=== PATIENT | male | born 1945 | race Caucasian/White ===

== ENCOUNTER 2019-07-28 11:29 | Outpatient (RCR) | payer MEDICARE, OTHER, SELFPAY ==
[2019-07-28 11:51] VITALS: BP 126/78; PULSE 85; RESP 16; O2SAT 95
--- NOTE | 2019-08-31 09:34 | PCCPR ---
Program is temporarily suspended due to COVID outbreak.
--- NOTE | 2019-09-07 14:07 | PCCPR ---
Called patient in regards to the temporary closure of our department continuing until at least October 05. Patient states he has a tendency to over do it and then cant do much for several days after. Encouraged him to just do 20-30 min of activity/yard work per day instead of trying to get it all done in one day. Also encouraged patient to get in some walking during his time off from here. Will mail out temporary home exercise information. Will continue to follow patient weekly.
--- NOTE | 2019-09-14 11:54 | PCCPR ---
Called Ward today for weekly check, spoke with and she stated that he was doing well and received the exercise guidelines in the mail.
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
--- NOTE | 2019-10-05 13:10 | PCCPR ---
Weekly update call-informed patient of continued closure through the month of October due to the extension of the [facility] in place order. No questions at this time.
--- NOTE | 2019-11-03 15:13 | PCCPR ---
Spoke with Ward today, he is to have an echocardiogram and see Dr. Mcbride next week. No questions or concerns at this time.
--- NOTE | 2020-02-07 11:12 | PCCPR ---
Spoke with Ward about possibly returning to CPR States he feels he is getting quite a bit of exercise at home. He also mentioned his frustration with taking his daily diuretic and needing to urinate frequently. He said he has also put on weight and his leg still swells off and on. He has an apt with Dr Mcbride about returning to Cardiac rehab on 02/19. Requested he give us an update after his apt.
--- NOTE | 2020-02-28 16:01 | PCCPR ---
Ward saw his signal person last week and Rn Clinical Coordinator left it up to his discretion as to return to cardiac rehab. At this time Ward would not like to return, Ward discharged from program.
== END 2019-07-28 23:59 | disposition home or self-care (01) ==
LOC: ANHCPREHAB 11:29
PROVIDERS: PCP Internal Medicine; Visit Provider Internal Medicine Cardiovascular Disease
DX: I50.89 Other heart failure (principal)
CPT/HCPCS: 93798

== ENCOUNTER 2022-04-22 15:10 | Outpatient (CLI) | payer MEDICARE, SELFPAY ==
--- NOTE | ~2022-04-22 | US_ITS ---
US retroperitoneal comp 04/22/2022 15:57 Procedure: Realtime transabdominal ultrasound of the kidneys and bladder. Indication: Urinary tract infection Comparison: No prior studies Findings: Renal echotexture is normal bilaterally without hydronephrosis, contour deforming mass or r enal calculus. The right kidney measures 10.8 cm and left kidney measures 11.4 cm. Bladder volume is 460 cc. There is a bladder diverticula. No bladder wall thickening. Impression: 1: Bladder diverticula. Otherwise, unremarkable renal ultrasound. Reviewed, dictated and finalized at location A. ATION ENGINEER Impression: 1: Bladder diverticula. Otherwise, unremarkable renal ultrasound.
== END 2022-04-22 15:11 | disposition home or self-care (01) ==
PROVIDERS: PCP Internal Medicine; Visit Provider Nurse Practitioner
DX: N39.0 Urinary tract infection, site not specified (principal); N32.3 Diverticulum of bladder
CPT/HCPCS: 76770

== ENCOUNTER → 2023-08-10 11:45 | Outpatient (CLI) | payer MEDICARE, SELFPAY ==
--- NOTE | ~2023-08-10 | CT_ITS ---
EXAMINATION: CT abdomen pelvis wo con DATE: 08/10/2023 12:11 INDICATION: Benign prostatic hyperplasia. TECHNIQUE: Computed tomography (CT) of the abdomen and pelvis was performed without intravenous contr ast. Automated exposure control and iterative reconstruction technique were employed. The dose-length product was 1090.12 mGy-cm. COMPARISON: None. FINDINGS: The visualized portions of the lung bases demonstrate minimal atelectasis. There are small pleural effusions. Cardiomegaly is noted. No pericardial effusion. There are coronary artery calcific ations. There are pacer wires in right ventricle and coronary sinus. There is a small sliding hiatal hernia. The liver, gallbladder, spleen, pancreas, and adrenal glands are normal. There is cortical th inning of the kidneys. There is a 10 mm cyst in left kidney. There is no urolithiasis. There is calci fied atherosclerosis of the aorta and many of the other arteries. The prostate is mildly enlarged. Th e bladder is distended with trabeculated wall and diverticula. There are no dilated loops of bowel. T he appendix is normal. There are no pathologically enlarged lymph nodes. There is no free intraperito abby fluid. There is moderate lumbar spondylosis. There are bridging endplate osteophytes at multiple levels in the spine, consistent with diffuse idiopathic skeletal hyperostosis (DISH). There is mild chronic anterior wedging of multiple vertebral bodies. IMPRESSION: 1. Mildly enlarged prostate. 2. Distended bladder with trabeculated wall and diverticula which may be seen with chronic outlet obs truction or neurogenic bladder. 3. Small sliding hiatal hernia. Reviewed, dictated and finalized at location E. FITTER IMPRESSION: 1. Mildly enlarged prostate. 2. Distended bladder with trabeculated wall and diverticula which may be seen w ith chronic outlet obstruction or neurogenic bladder. 3. Small sliding hiatal hernia.
== END ==
PROVIDERS: PCP Urology; Visit Provider Urology
DX: N40.1 Benign prostatic hyperplasia with lower urinary tract symptoms (principal); K44.9 Diaphragmatic hernia without obstruction or gangrene
CPT/HCPCS: 74176

== ENCOUNTER 2023-08-31 12:19 | Outpatient (RCR) | payer MEDICARE, SELFPAY ==
--- NOTE | 2023-08-31 13:42 | OPREHPOC ---
Outpatient Therapy Plan of Care This is a Multidisciplinary Plan of Care that may contain components documented by all disciplines (PT, OT, and ST.) PT Problem 1 PT Problem #1 Knowledge Deficit PT Goal 1 Goal *indep with HEP PT Goal 1 Goal * monitor leg pain during sessions PT Problem 3 PT Problem #3 Impaired Strength PT Goal 1 Goal increase R and L LE strength to improve transfer and gait skills: 1* supine exercises R and L LE x 20 reps 2* sit/stand from 18 seat with both UE use and not labored PT Problem 4 PT Problem #4 Impaired Functional Mobility PT Goal 1 Goal 1* supine/sit transfer indep, not labored 2* Tinetti balance/gait score of 20/28 3* 2 minute walking test distance of 250' with wheeled walker 4* pt report is NOT assisting him with dressing 5* pt transfer sit to stand without report of feeling like falling forward
--- NOTE | 2023-08-31 13:43 | PTOPEVAL1 ---
Assessment and note entered by Mary Mayers, PT Evaluation Information Assessment Status Evaluation Diagnosis neuropathy, decreased gait and balance skills Onset past few years Subjective Information have declined with mobility since CABG surgery 5 years ago; more in the past few years; have neuropathy in both legs, use wheeled walker, regular walker and cane; very limited walking, in home only; does home tasks; he does go to [employer] and helps with bingo 3x /wk; have not had any falls; does not do any LE exercises, does try little walking in the house. Activity: requires assist with donning under pad and putting on shoes; indep showering/bathing; assist with dressing, pt stands to put on pants and shoes, holding onto dresser as he uses other hand for pants; Education: dressing in sitting position, use of long handle shoe horn; use of wheeled walker for more balance; Reported Pain Level Pain Score 0: Self Report Additional Pain Score Comments pain in legs increase to 6/10 when over do it; sharp pain sometimes in either foot, when in bed; in the house, tends to walk without shoes or socks on; discussed on importance of shoe to protect feet; Assessment PT Clinical Summary Ward has the diagnosis of neuropathy with decreased balance and mobility. He is using the cane or wheeled walker, with assisting him with dressing and doing the majority of home tasks. Limited distance with walking and has not had any falls, but off balance and fearful of falling. He does not do any leg exercises and uses the lift chair to assist him to stand up. With the evaluation: he requires assist to transfer sit to stand from 18 seat height; Poor gait pattern with short step length and shuffling, flat foot pattern; 2 minute walking test distance with the wheeled walker is 120'; Tinetti balance/gait score of 9/28= high risk for falls; decreased LE strength R and L, with mat and sitting exercises, 6-11 reps; supine to sit from the mat requires min assist x1. Skilled PT services are indicated to increase LE strength, transfer, gait and balance skills, to improve his indep with mobility and self care, decrease the amount of assistance required from his and education for home exercises and gait pattern and safety. Plan of Care Interventions Neuro Re-education,Patient/Caregiver Education, Therapeutic Activities,Therapeutic Exercise,Self- Care/Home Management PT Services Indicated Yes Treatment Frequency and 2x/wk for total of 10 visits Duration These treatments will address the objective and functional deficits as defined above. The patient will be advanced safely and appropriately in order for the patient to progress towards his/her prior level of function. Additional exercises will be introduced and as well as a comprehensive home exercise program upon discharge, if needed, ?to ensure carryover of functional gains achieved in the clinic. This treatment plan has been reviewed and agreement upon by the patient.
--- NOTE | 2023-09-04 08:38 | PCPTNOTE ---
talked with pt's Jazmine on the phone. She canceled upcoming PT appointments due to pt having prostate surgery next week and HOLD PT until after surgery and cleared by dr to return to PT. Discussed with her to obtain an order from dr to resume PT.
--- NOTE | 2023-09-25 09:09 | PTOPDC ---
Assessment and note entered by Mary Mayers, PT Discharge Information Assessment Status Discharge - Pt Not Present Diagnosis neuropathy, decreased gait and balance skills Onset past few years Assessment PT Clinical Summary Ward had the PT evaluation on August 30. He called and canceled his therapy due to having prostate surgery and then going out of town. The goals were not assessed. Discharge PT services. Plan of Care PT Services Indicated No
== END 2023-09-25 09:42 | disposition home or self-care (01) ==
LOC: ANHPT 12:19
PROVIDERS: PCP Urology; Visit Provider Internal Medicine
DX: G62.9 Polyneuropathy, unspecified (principal)
CPT/HCPCS: 97110; 97162; 97530

== ENCOUNTER 2023-09-10 00:59 | Day surgery (SDC) | payer MEDICARE, SELFPAY ==
[2023-09-02 15:29] VITALS: BMI 47.6
--- NOTE | 2023-09-02 15:48 | PC.NURSE ---
Report to the Outpatient Waiting Room, entrance under the green pavilion located off [facility], at time __6:30AM on date ___09/10/23____. Planned Procedure Time: __8:30AM . Time changes happen often and if your time is changed the preop area will call you the afternoon before. - You and your visitor will be asked to self-screen and do not enter if you have any COVID symptoms. - A mask is optional within the hospital at this time. Patients may have clear liquids (water, carbonated beverages, clear teas, apple juice) until 3 hours prior to surgery with a maximum of 20 ounces. - No food from midnight until time of surgery. Take the following medications with a SIP of water the morning of surgery: ___CARVEDILOL, SOTALOL DO NOT STOP ANY OF YOUR OTHER PRESCRIPTION MEDICATIONS PRIOR TO SURGERY ?EXCEPT THE FOLLOWING Medications to discontinue per physician ___HOLD XERALTO 2 DAYS PRE-OP PER DR MEZA PER PATIENT- LAST DOSE 09/07/23. HOLD ASPIRIN PER DR MEZA- PATIENT'S IS CALLING OFFICE TO VERIFY. Please no make-up, nail czech, hairspray, perfume, deodorant, or body powder the day of surgery. No jewelry (including any body piercings) or valuables the day of surgery, leave them at home. Please take a shower or bath the night before, or the morning of, surgery with an antibacterial soap. Wear comfortable, loose fitting clothing. Children are encouraged to wear pajamas. - Jewelry must be removed prior to entering the operating room. Rings and piercings that are not removed may be cut off. - The hospital will not accept responsibility for valuables. - Please leave all valuables, including medications, at home the day of surgery. If you are going home after surgery, a licensed team otr truck driver must drive you home. - NO public transportation without another adult if you receive anesthesia. - We recommend that an adult stay with you for 24 hours following discharge. - We also recommend that you do not drive, make important decision, drink alcoholic beverages, or take any drugs that were not prescribed by your health care provider for at least 24 hours after your discharge time. For Pediatric surgeries, we recommend two adults accompany the child home. Follow any additional instructions given to you from your surgeon. If you or anyone in your household have experienced Covid symptoms in the past week, please notify your surgeon or the nurse liaison at the phone number below for possible testing. Telephone instructions given to ___PATIENT & WIFE and asked if any additional questions and then verbalized understanding. Patient advised to call surgeon office or pre surgery nurse liaison [phone] if any additional questions.
--- NOTE | 2023-09-03 07:20 | PM.IMHP ---
H&P: HPI History of Present Illness Date/Time: 09/03/23 07:20 Chief Complaint: Difficulty urinating Narrative: 78-year-old gentleman is a patient of our practice since September 2020. He has longstanding outlet obstructive voiding symptoms and is quite troubled by both irritable and obstructive symptoms. He carries residual volumes of approximately 500 cc. He has had minimal response to attempt with medical therapy both with 5 alpha reductase inhibitors and alpha blockers. Recent urodynamics are consistent with outlet obstruction and transrectal ultrasonography demonstrates a prostate volume of approximately 40-45 g. After discussion of therapeutic options including minimally invasive procedures for BPH and TURP, he has elected for the latter. He is aware the risk including, but not limited to, adverse cardiopulmonary events, persistent voiding symptoms, hematuria and retrograde ejaculation. Review of Systems Cardiovascular: Cardiovascular: Denies chest pain, Denies lightheadedness, Denies palpitations and Denies dyspnea Respiratory: Respiratory: Denies dyspnea Gastrointestinal: Gastrointestinal: Denies diarrhea, Denies nausea and Denies vomiting Genitourinary: Genitourinary: Denies hematuria and Denies dysuria Endocrine: Endocrine: Denies palpitations [facility] Past Medical History Medical History (Updated 09/03/23 @ 07:22 by Eduardo Holloway MD) Atrial fibrillation Cardiomyopathy Hypertension, essential Low Back Pain Neuropathy Obesity Rectal hemorrhage Systolic heart failure Venous stasis Family History Family History Father Acute myocardial infarction Mother Leukemia Sibling Lung cancer Social History Social History Smoking status: Never smoker 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) Alcohol intake: current Drinks per week: 7 Living arrangements: with family Additional living arrangements comments: Spiritual care concerns: No Meds Home Medications and Allergies Home Medications Medication Instructions Recorded Confirmed Type acetaminophen 325 mg capsule 650 mg PO Q6-8H PRN Pain 07/28/19 09/02/23 History (Tylenol) allopurinol 100 mg tablet 200 mg PO DAILY 07/28/19 09/02/23 History aspirin 81 mg tablet,delayed 81 mg PO DAILY 07/28/19 09/02/23 History release carvedilol 12.5 mg tablet 12.5 mg PO BID 07/28/19 09/02/23 History furosemide 40 mg tablet 20 mg PO QAM 07/28/19 09/02/23 History rivaroxaban 20 mg tablet (Xarelto) 20 mg PO DAILY 07/28/19 09/02/23 History sacubitril 49 mg-valsartan 51 mg 1 tablet PO BID 07/28/19 09/02/23 History tablet (Entresto) atorvastatin 40 mg tablet 40 mg PO DAILY 09/02/23 09/02/23 History sotalol 80 mg tablet 40 mg PO BID 09/02/23 09/02/23 History spironolactone 25 mg tablet 25 mg PO QAM 09/02/23 09/02/23 History Allergies Allergy/AdvReac Type Severity Reaction Status Date / Time No Known Allergies Allergy Unknown Other Verified 09/02/23 15:22 Exam Const: General: no acute distress Resp: Effort & Inspection: normal respiratory effort GI: Inspection: non-distended GI Palp: No abdominal tenderness and No Guarding due to palpation present (GI) Auscultation: normal bowel sounds Assessment and Plan Assessment and plan (1) BPH loc w urin obs/LUTS: Code(s): N40.1 - Benign prostatic hyperplasia with lower urinary tract symptoms Status: Acute Assessment and Plan: TURP
[2023-09-10] VITALS (13 sets, daily range): BP systolic 122–162; BP diastolic 67–83; PULSE 70–80; RESP 12–20; TEMP 36.1–36.8; O2SAT 96–100
--- NOTE | 2023-09-10 06:27 | WPDHPUPDATE1 ---
History and Physical Update Update Date/Time: 09/10/23 06:27 History and Physical has been reviewed, including an updated exam of the patient. There are NO changes in the patient's condition. Risks, benefits, and alternatives have been discussed and questions answered. Patient agrees to proceed with procedure.
[2023-09-10] MEDS: LACTATED RINGERS 1,000 ML 30 ML IV CONT (07:00)
--- NOTE | 2023-09-10 08:09 | WPDANESEPPF ---
Anes - Initial Pre Proc Eval Procedure: Operation Date: 09/10/23 08:30 Proposed Procedures p Trans Urethral Resection Prostate - Eduardo Holloway MD Date/Time: 09/10/23 08:09 Surgeon: Eduardo Holloway MD Pre Op Diagnosis: BPH Patient Data Age: 78 Gender: M Height: 1.8 m Weight: 157 kg Last Vital Signs Temp 98.0 F 09/10/23 07:48 Pulse 80 09/10/23 07:48 Resp 16 09/10/23 07:48 BP 162/67 H 09/10/23 07:48 Pulse Ox 99 09/10/23 07:48 O2 Del Method Room Air 09/10/23 07:48 Allergies Allergy/AdvReac Type Severity Reaction Status Date / Time No Known Allergies Allergy Unknown Other Verified 09/10/23 07:45 Home Medications Medication Instructions Recorded Confirmed Type acetaminophen 325 mg capsule 650 mg PO Q6-8H PRN Pain 07/28/19 09/02/23 History (Tylenol) allopurinol 100 mg tablet 200 mg PO DAILY 07/28/19 09/02/23 History aspirin 81 mg tablet,delayed 81 mg PO DAILY 07/28/19 09/10/23 History release carvedilol 12.5 mg tablet 12.5 mg PO BID 07/28/19 09/10/23 History furosemide 40 mg tablet 20 mg PO QAM 07/28/19 09/02/23 History rivaroxaban 20 mg tablet (Xarelto) 20 mg PO DAILY 07/28/19 09/10/23 History sacubitril 49 mg-valsartan 51 mg 1 tablet PO BID 07/28/19 09/02/23 History tablet (Entresto) atorvastatin 40 mg tablet 40 mg PO DAILY 09/02/23 09/02/23 History sotalol 80 mg tablet 40 mg PO BID 09/02/23 09/10/23 History spironolactone 25 mg tablet 25 mg PO QAM 09/02/23 09/02/23 History Patient hx anesthesia problems: none Family hx anesthesia problems: none Results Review: All pre-operative results and documents have been reviewed as part of the pre-operative evaluation. 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 ) Neurological: alert and oriented Last oral intake: >/= 8 hours ASA classification: IV Emergent: no Anesthetic plan: proceed Anesthesia type and monitoring: general and standard monitoring Other findings: Full cardiac workup August 2023 w reported nml LVEF. ANJANA on CPAP 5-18. Results Review: All pre-operative results and documents have been reviewed as part of the pre-operative evaluation. Informed Consent: The patient's anesthetic plan and its attendant risks and benefits were discussed with the patient/family/POA. Questions were solicited and answers provided to the satisfaction of the patient/family/POA.
[2023-09-10] MEDS: ceFAZolin 3 GM/D5W 100 ML 100 ML IVPB (08:27)
[2023-09-10] MEDS: fentaNYL CITRATE INJ (*CRX) 100 MCG/2 ML VIAL 25 MCG IV PUSH ×6 (09:37→10:03)
--- NOTE | 2023-09-10 09:37 | P.OP_ITS ---
Procedure Note - Detailed Date of Procedure 09/10/23 Pre-op Diagnosis BPH Post-op Diagnosis Same Procedure Performed TURP Surgeon Eduardo Holloway MD Anesthesia General Description of Procedure The patient was brought to the operative suite where he is prepped and draped in routine sterile fashion while in the dorsal lithotomy position after the uneventful induction of a general LMA anesthetic. A 27 Lao resectoscope sheath was placed into his bladder. He had no urethral strictures. The patient had trilobar hyperplasia with a moderate median lobe. The bladder itself was endoscopically normal, showing no mucosal hyperemia, intravesical neoplasm or foreign bodies. There was a single, orthotopic ureteral orifice bilaterally. These orifices were identified and preserved throughout the remainder of the procedure. Attention was first turned to resection of the median lobe. This resection was undertaken from the bladder neck to the verumontanum and carried out until the transverse fibers of the bladder neck were identified. The left lateral lobe was then resected starting at the 6 o'clock position, working counter clockwise to the 12 o'clock position. Again, resection was carried out from the bladder neck to the verumontanum until the capsular fibers of the prostate were identified. The right lateral lobe was resected in a similar fashion starting at the 6 o'clock position working clockwise to the 12 o'clock position and carried out until the capsular fibers of the prostate were identified. Apical tissue was then circumferentially resected. All chips were evacuated from the bladder using an [employer] evacuator. Hemostasis was obtained with electric cautery. The ureteral orifices were again inspected and found to be without injury. Estimated blood loss throughout this procedure was 50cc. The patient was taken to recovery room having tolerated this well.
--- NOTE | 2023-09-10 10:45 | ADMGEN ---
This patient, Ward Sarabia, was admitted to Medical Room 345-01. Patient/family oriented to hospital policies and general routines including ID bracelet, bed and alarms, visiting hours, pain management, procedures, bathroom and other care routines, personal items, smoking policy, room service/diet, and visiting hours. Information on how to activate the Rapid Response Team has been discussed. Patient/Family are encouraged to report perceived risks to care and to ask questions if they do not understand what they are told or what they should do.
[2023-09-10] MEDS: DEXTROSE 5%/LACTATED RINGERS 1,000 ML 125 ML IV CONT (11:05)
[2023-09-10] MEDS: HYOSCYAMINE SULFATE 0.125 MG TABLET SUBLINGUAL (11:13)
[2023-09-10] MEDS: HYDROcodone/acetaminophen (*CRX) 5-325 MG TABLET 1 TAB PO ×2 (13:53→22:06)
[2023-09-10] MEDS: ceFAZolin 1 GM/NS 50 ML 1 GM/50 ML BAG IVPB (16:31)
[2023-09-10] MEDS: DOCUSATE SODIUM 100 MG CAPSULE PO (16:32)
[2023-09-10] MEDS: SOTALOL HCL 40 MG TABLET PO (16:32)
[2023-09-10] MEDS: carvediloL 12.5 MG TABLET PO (16:32)
[2023-09-10] MEDS: SACUBITRIL/VALSARTAN 49-51 MG TABLET 1 TABLET PO (16:33)
[2023-09-10] MEDS: ATORVASTATIN 20 MG TABLET PO (22:05)
[2023-09-10] MEDS: WATER FOR IRRIGATION, STERILE 1,000 ML BOTTLE 1000 ML (23:48)
[2023-09-11] MEDS: ceFAZolin 1 GM/NS 50 ML 1 GM/50 ML BAG IVPB (00:18)
[2023-09-11 04:15] VITALS: PULSE 78; RESP 18; O2SAT 97
[2023-09-11 06:05] LABS: Hematocrit 38.7 % (42.0-52.0); Hemoglobin 12.1 g/dL (14.0-18.0)
[2023-09-11 06:31] LABS: Anion Gap 6 mmol/L (4-12); Blood Urea Nitrogen 22 mg/dL (9-20); Calcium 8.6 mg/dL (8.4-10.2); Carbon Dioxide 21 mmol/L (22-30); Chloride 105 mmol/L (98-107); Estimated CRCL calculation 70 ml/min; Estimated Glomerular Filt Rate 59; Glucose 160 mg/dL (65-110); Potassium 4.8 mmol/L (3.4-5.0); Sodium 132 mmol/L (137-145)
[2023-09-11 08:06] VITALS: PULSE 80
[2023-09-11] MEDS: SACUBITRIL/VALSARTAN 49-51 MG TABLET 1 TABLET PO (08:06)
[2023-09-11] MEDS: allopurinoL 100 MG TABLET 200 MG PO (08:06)
[2023-09-11] MEDS: SPIRONOLACTONE 25 MG TABLET PO (08:06)
[2023-09-11] MEDS: carvediloL 12.5 MG TABLET PO (08:06)
[2023-09-11 08:07] VITALS: PULSE 80
[2023-09-11] MEDS: SOTALOL HCL 40 MG TABLET PO (08:07)
[2023-09-11] MEDS: DOCUSATE SODIUM 100 MG CAPSULE PO (08:07)
[2023-09-11] MEDS: CEPHALEXIN 500 MG CAPSULE PO ×2 (08:07→12:50)
[2023-09-11] MEDS: FUROSEMIDE 20 MG TABLET PO (08:07)
--- NOTE | 2023-09-11 08:15 | WPDANESPN ---
Anes - Prog Note Post-Op Date/Time: 09/11/23 08:15 Cardiovascular status: normal Respiratory status: normal Airway patency: baseline Mental status: baseline Post-Op hydration status: normal Vital Signs: Last Vital Signs Temp 36.6 C 09/10/23 20:12 Pulse 80 09/11/23 08:07 Resp 18 09/11/23 04:15 BP 130/68 09/10/23 20:12 Pulse Ox 97 09/11/23 04:15 O2 Del Method Autopap 09/11/23 04:15 O2 Flow Rate 6 09/10/23 09:40 Pain Score (VAS): 0/10 I/O: Intake & Output 09/10/23 09/11/23 09/11/23 23:59 07:59 15:59 Intake Total 790 1700 Output Total 500 750 Balance 290 950 Laboratory Tests 09/11/23 05:57 09/11/23 05:57 09/11/23 05:57 Hgb 12.1 L Hct 38.7 L Sodium 132 L Potassium 4.8 Chloride 105 Carbon Dioxide 21 L Anion Gap 6 BUN 22 H Creatinine 1.20 Estim Creat Clear Calc 70 Estimated GFR 59 Glucose 160 H Calcium 8.6 Post-procedural complaints: none Patient Feedback: Patient satisfied with anesthetic care.
[2023-09-11 10:00] VITALS: BP 129/79; PULSE 79; RESP 17; TEMP 36.4; O2SAT 96
--- NOTE | 2023-09-11 12:28 | WPDUROPN2 ---
Progress Note: A&P Assessment and Plan (1) BPH loc w urin obs/LUTS: Code(s): N40.1 - Benign prostatic hyperplasia with lower urinary tract symptoms Status: Acute Assessment and Plan: CBI stopped the morning with planned voiding trial in the afternoon Subjective Subjective Date/Time Seen: 09/11/23 12:28 Interval history: Comfortable, no complaints, urine clear Review of Systems Cardiovascular: Cardiovascular: Denies chest pain, Denies lightheadedness, Denies palpitations and Denies dyspnea Respiratory: Respiratory: Denies dyspnea Gastrointestinal: Gastrointestinal: Denies diarrhea, Denies nausea and Denies vomiting Genitourinary: Genitourinary: Denies hematuria and Denies dysuria Endocrine: Endocrine: Denies palpitations Exam Urinary Catheter: Urinary Catheter: patent and draining and urine clear Objective Data Vital Signs Vital Signs: Vital Signs - 24 hr 09/10/23 16:32 09/10/23 16:32 09/10/23 16:55 Temperature 98.2 F Pulse Rate 70 70 78 Respiratory Rate 16 Blood Pressure 137/80 Pulse Oximetry 100 Oxygen Delivery 09/10/23 20:12 09/10/23 23:30 09/11/23 04:15 Temperature 97.8 F Pulse Rate 80 80 78 Respiratory Rate 20 20 18 Blood Pressure 130/68 Pulse Oximetry 98 97 97 Oxygen Delivery Autopap Autopap 09/11/23 08:06 09/11/23 08:07 09/11/23 08:05 Temperature Pulse Rate 80 80 Respiratory Rate Blood Pressure Pulse Oximetry Oxygen Delivery Room Air 09/11/23 10:00 Temperature 97.5 F L Pulse Rate 79 Respiratory Rate 17 Blood Pressure 129/79 Pulse Oximetry 96 Oxygen Delivery Intake/Output Intake/Output: Intake & Output 09/08/23 09/09/23 09/10/23 09/11/23 23:59 23:59 23:59 23:59 Intake Total 4930 2300 Output Total 3850 950 Balance 1080 1350 Meds/Results Medications: Active Medications Generic Name Dose Route Start Last Admin Trade Name Freq PRN Reason Stop Dose Admin Hydrocodone Bitart/Acetaminophen 1 tab 09/10/23 10:27 09/10/23 22:06 Hydrocodone/Acetaminophen (*Crx) 5-325 Mg Tablet PO 1 tab Q4H PRN Administration Pain Rated 1-6 Allopurinol 200 mg 09/11/23 09:00 09/11/23 08:06 Allopurinol 100 Mg Tablet PO 200 mg DAILY SHU Administration Atorvastatin Calcium 20 mg 09/10/23 22:00 09/10/23 22:05 Atorvastatin 20 Mg Tablet PO 20 mg QHS [facility] Administration Carvedilol 12.5 mg 09/10/23 17:00 09/11/23 08:06 Carvedilol 12.5 Mg Tablet PO 12.5 mg BID [facility] Administration Cephalexin HCl 500 mg 09/11/23 09:00 09/11/23 08:07 Cephalexin 500 Mg Capsule PO 500 mg QID [facility] Administration Docusate Sodium 100 mg 09/10/23 17:00 09/11/23 08:07 Docusate Sodium 100 Mg Capsule PO 100 mg BID [facility] Administration Furosemide 20 mg 09/11/23 09:00 09/11/23 08:07 Furosemide 20 Mg Tablet PO 20 mg QAM [facility] Administration Hyoscyamine 0.125 mg 09/10/23 10:27 09/10/23 11:13 Hyoscyamine Sulfate 0.125 Mg Tablet SUBLINGUAL 0.125 mg Q6H PRN Administration Bladder Spasm Morphine Sulfate 2 mg 09/10/23 10:27 Morphine Sulfate (*Crx) 2 Mg/Ml Inj IV PUSH Q2H PRN Pain Rated 7-10 Naloxone HCl 0.1 mg 09/10/23 10:27 Naloxone Hcl 0.4 Mg/Ml Vial IV PUSH Q2M PRN Opiate Reversal Ondansetron HCl 4 mg 09/10/23 10:27 Ondansetron Inj 4 Mg/2 Ml Vial IV PUSH Q12H PRN Nausea And Vomiting Sacubitril/Valsartan 1 tablet 09/10/23 17:00 09/11/23 08:06 Sacubitril/Valsartan 49-51 Mg Tablet PO 1 tablet BID [facility] Administration Sotalol HCl 40 mg 09/10/23 17:00 09/11/23 08:07 Sotalol Hcl 40 Mg Tablet PO 40 mg BID [facility] Administration Spironolactone 25 mg 09/11/23 09:00 09/11/23 08:06 Spironolactone 25 Mg Tablet PO 25 mg QAM [facility] Administration Labs Labs: Laboratory Results - last 24 hr 09/11/23 05:57 Hgb 12.1 L Hct 38.7 L Sodium 132 L Potassium 4.8 Chloride 105 Carbon Dioxi
--- NOTE | 2023-09-11 13:18 | PM.DS ---
DS: Admitting Diagnosis Discharge Date 09/11/2023 Admitting Diagnosis BPH DS: Discharge Diagnosis Discharge Diagnosis (1) BPH loc w urin obs/LUTS: Code(s): N40.1 - Benign prostatic hyperplasia with lower urinary tract symptoms Status: Acute DS: Summary Hospital Course Hospital Course: This patient with longstanding prostatism refractory for medical management was admitted on the morning of his planned TURP. The procedure was undertaken on that same day in an uneventful fashion. His post-operative course was, likewise, uneventful. On the evening of the procedure he was tolerating a diet. On POD#1 his urine was clear on CBI. The urine remained clear and, therefore, the catheter was removed late morning. The patient was observed for several hours, until he demonstrated he could void effectively without significant hematuria. He was discharged with careful instruction on limiting physical activity x2 weeks and plans to f/ in 2-3 weeks. At discharge he was comfortable and tolerating a diet. Time Spent with Patient Time attestation: Total time spent providing and/or coordinating discharge services: DS: Data Data Completed and Pending Completed studies during hospitalization: Pending at discharge 09/10/23 09:13 Surgical [PTH] Routine Labs on day of discharge: Labs from last 24 hours 09/11/23 05:57 Hgb 12.1 L Hct 38.7 L Sodium 132 L Potassium 4.8 Chloride 105 Carbon Dioxide 21 L Anion Gap 6 BUN 22 H Creatinine 1.20 Estim Creat Clear Calc 70 Estimated GFR 59 Glucose 160 H Calcium 8.6 Discharge Plan Discharge Patient Disposition: Home, Self-Care Discharge Instructions: 1) Activity: No lifting/straining >15lbs. x2 weeks. 2) Diet: Resume normal pre-admission diet. 3) Follow-up: 2-3 weeks / call office for appointment ([phone]). Patient Instructions: Rivaroxaban (By mouth) Discharge Orders: Discharge Order (Routine); Ordered 09/11/23 Ordered By: Eduardo Holloway Discharge Medications: New hydrocodone-acetaminophen 5-325 mg tablet 1 - 2 tablet PO Q6H PRN (Reason: pain) Qty: 20 0RF cephalexin 500 mg capsule 500 mg PO Q8H Qty: 9 0RF docusate sodium [Colace] 100 mg capsule 100 mg PO DAILY Qty: 30 0RF Continued allopurinol 100 mg Tablet 200 mg PO DAILY furosemide 40 mg Tablet 20 mg PO QAM carvedilol 12.5 mg Tablet 12.5 mg PO BID acetaminophen [Tylenol] 325 mg Capsule 650 mg PO Q6-8H PRN (Reason: Pain) Entresto 49-51 mg Tablet 1 tablet PO BID atorvastatin 40 mg tablet 20 mg PO QHS Patient Comments: per patient he only takes 20 mg po qhs. sotalol 80 mg tablet 40 mg PO BID spironolactone 25 mg tablet 25 mg PO QAM Held aspirin 81 mg Tablet,Delayed Release (Dr/Ec) 81 mg PO DAILY Hold Instructions: Resume on 09/13/23. Xarelto 20 mg Tablet 20 mg PO DAILY Hold Instructions: Resume on 09/13/23.
== END 2023-09-11 14:20 | disposition home or self-care (01) ==
LOC: ANHSURGERY 06:30 → ANH3MED 10:11
PROVIDERS: PCP Internal Medicine; Visit Provider Urology
PROC: 0VT08ZZ Resection of Prostate, Via Natural or Artificial Opening Endoscopic (ICD-10-PCS; CPT 52601; principal; 2023-09-10 08:30)
DX: N40.1 Benign prostatic hyperplasia with lower urinary tract symptoms (principal); N41.1 Chronic prostatitis; R33.8 Other retention of urine; I48.91 Unspecified atrial fibrillation; I42.9 Cardiomyopathy, unspecified; I11.0 Hypertensive heart disease with heart failure; I50.20 Unspecified systolic (congestive) heart failure; Z79.82 Long term (current) use of aspirin
CPT/HCPCS: 52601; 36415; 80048; 85014; 85018; 88305; A9270; C1758; J0690; J3010; J7120; J7121

== ENCOUNTER 2024-01-08 10:27 | Emergency (ER) | payer MEDICARE, SELFPAY ==
[2024-01-08] VITALS (45 sets, daily range): BP systolic 115–189; BP diastolic 62–145; PULSE 75–87; RESP 9–26; TEMP 36.4–36.8; O2SAT 84–100
--- NOTE | ~2024-01-08 | CT_ITS ---
EXAMINATION: CT abdomen pelvis w con DATE: 01/08/2024 13:01 INDICATION: Blood in stool. TECHNIQUE: Computed tomography (CT) of the abdomen and pelvis was performed with 100 mL Omnipaque 350 intravenous contrast. Automated exposure control and iterative reconstruction technique were employe d. The dose-length product was 1593.47 mGy-cm. COMPARISON: CT abdomen and pelvis 08/10/2023 FINDINGS: The visualized portions of the lung bases demonstrate mild atelectasis. Calcified right hil ar lymph nodes are consistent with old granulomatous disease. No pleural effusion. Cardiomegaly is no igor. There are coronary artery calcifications. Median sternotomy wires are noted. No pericardial effu camilla. The liver, gallbladder, spleen, pancreas, and adrenal glands are normal. There is cortical thin lisa of the kidneys. There is a 13 mm cyst in left kidney. There are no dilated loops of bowel. The a ppendix is normal. The prostate is mildly enlarged. The bladder is distended with trabeculated wall, likely secondary to chronic outlet obstruction. There are no dilated loops of bowel. The appendix is normal. There is calcified atherosclerosis of the aorta and many of the other arteries. There are no pathologically enlarged lymph nodes. There is no free intraperitoneal fluid. There is severe lumbar s pondylosis. There are bridging endplate osteophytes at multiple levels in the spine, consistent with diffuse idiopathic skeletal hyperostosis (DISH). IMPRESSION: 1. No etiology for blood in stool. Reviewed, dictated and finalized at location A.
--- NOTE | 2024-01-08 11:11 | ED.GENADULT ---
HPI - General Adult General Chief complaint: GI Bleed <Dipesh Wren APRN - Last Filed: 01/08/24 11:13> Stated complaint: Blood in Stool <Dipesh Wren APRN - Last Filed: 01/08/24 11:13> Time Seen by Provider: 01/08/24 11:11 <Dipesh Wren APRN - Last Filed: 01/08/24 11:13> patient presents with black tarry stools that started yesterday. associated fevers. patient has been taking augmentin since Thursday for a dental infection. patient is on Xarellto. patient denies abdominal pain PE: A&Ox3, abdomen soft and non-tender, skin is pale, BS CTA <Dipesh Wren APRN - Last Filed: 01/08/24 11:13> 78-year-old male on Xarelto presenting for GI bleed. Patient was placed on amoxicillin for a dental infection. He then developed diarrhea that became dark reddish/black and tarry. No abdominal pain. No other symptoms. No history of GI bleed. Patient's last dose of Xarelto was taken last night. PE: A&Ox3, abdomen soft and non-tender, skin is pale, BS CTA <Shaggy Roque MD - Last Filed: 01/08/24 14:52> Related Data Home medications: Home Medications Medication Instructions Recorded Confirmed acetaminophen 325 mg capsule 650 mg PO Q6-8H PRN Pain 07/28/19 09/02/23 (Tylenol) allopurinol 100 mg tablet 200 mg PO DAILY 07/28/19 09/02/23 aspirin 81 mg tablet,delayed 81 mg PO DAILY 07/28/19 09/10/23 release carvedilol 12.5 mg tablet 12.5 mg PO BID 07/28/19 09/10/23 furosemide 40 mg tablet 20 mg PO QAM 07/28/19 09/02/23 rivaroxaban 20 mg tablet (Xarelto) 20 mg PO DAILY 07/28/19 09/10/23 sacubitril 49 mg-valsartan 51 mg 1 tablet PO BID 07/28/19 09/02/23 tablet (Entresto) atorvastatin 40 mg tablet 20 mg PO QHS 09/02/23 09/10/23 sotalol 80 mg tablet 40 mg PO BID 09/02/23 09/10/23 spironolactone 25 mg tablet 25 mg PO QAM 09/02/23 09/02/23 <Dipesh Wren APRN - Last Filed: 01/08/24 11:13> Allergies/adverse reactions: Allergies Allergy/AdvReac Type Severity Reaction Status Date / Time amoxicillin AdvReac Gastrointestinal Verified 01/08/24 10:31 Upset <Dipesh Wren APRN - Last Filed: 01/08/24 11:13> 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 Head: atraumatic. EYES: EOMI, NOSE: Atraumatic NECK: Trachea midline RESPIRATORY: No increased rate of breathing CARDIOVASCULAR: RRR, ABDOMINAL: Non-distended soft nontender no guarding or rebound Rectal exam: Dark red melanotic stool in the rectal vault. Hemoccult positive MUSCULOSKELETAl: No obvious deformities NEURO: Alert. Moving 4/4 extremities SKIN:: Warm, dry. Normal color PSYCHIATRIC:
[2024-01-08 11:35] LABS: Basophils Percent Auto 0.5 % (0.2-1.2); Eosinophils Absolute Auto 0.2 K/mm3 (0-0.3); Eosinophils Percent Auto 3.2 % (0-4.4); Hematocrit 38.1 % (42.0-52.0); Hemoglobin 12.2 g/dL (14.0-18.0); Immature Granulocyte Absolute 0.02 K/mm3 (0.00-0.031); Immature Granulocyte Percent A 0.3 % (0-0.5); Lymphocytes Absolute Auto 1.85 K/mm3 (0.9-3.2); Lymphocytes Percent Auto 29.2 % (18.3-44.2); Mean Corpuscular Hemoglobin 29.9 pg (26-34); Mean Corpuscular Volume 93.4 fl (80-100); Mean Platelet Volume 10.9 fl (7.4-10.4); Monocytes Absolute Auto 0.4 K/mm3 (0.1-0.6); Monocytes Percent Auto 6.6 % (2.6-8.5); Neutrophils Absolute Auto 3.8 K/mm3 (1.3-6.7); Neutrophils Percent Auto 60.2 % (45.5-73.1); Platelet Count Result 159 k/mm3 (150-375); Red Blood Count 4.08 M/mm3 (4.6-6.20); Red Cell Distribution Width 17.5 % (11.5-14.5); White Blood Count 6.3 K/mm3 (4.5-10.0)
[2024-01-08 11:44] LABS: INR 2.7
[2024-01-08 11:45] LABS: Partial Thromboplastin Time 49.2 Seconds (22.3-36.8)
[2024-01-08 11:55] LABS: Alanine Aminotransferase 20 U/L (6-50); Albumin Level 3.9 g/dL (3.5-5.1); Alkaline Phosphatase 70 U/L (38-126); Anion Gap 6 mmol/L (4-12); Aspartate Amino Transferase 36 U/L (17-59); Bilirubin,Total 0.7 mg/dL (0.2-1.3); Blood Urea Nitrogen 23 mg/dL (9-20); Calcium 8.8 mg/dL (8.4-10.2); Carbon Dioxide 25 mmol/L (22-30); Chloride 107 mmol/L (98-107); Estimated CRCL calculation 56 ml/min; Estimated Glomerular Filt Rate 54; Glucose 106 mg/dL (65-110); Magnesium 1.9 mg/dL (1.6-2.3); Potassium 4.3 mmol/L (3.4-5.0); Sodium 138 mmol/L (137-145)
[2024-01-08] MEDS: PANTOPRAZOLE SODIUM IV 40 MG VIAL 80 MG IV PUSH (14:45)
[2024-01-08 15:37] LABS: Hematocrit 37.8 % (42.0-52.0); Hemoglobin 12.2 g/dL (14.0-18.0)
[2024-01-08 15:47] LABS: Bacteria Urine None Seen /hpf; Need Manual Microscopic Reviewed; Non Pathogenic Casts 0-2; RBC Urine >100 /hpf (0-2); Squamous Epithelial Cell Urine Occasional /hpf (Few); WBC Urine >100 /hpf (0-3)
[2024-01-08 15:48] LABS: Add Urine Microscopic? YES; Appearance Urine Turbid (Clear); Bilirubin Urine 2+ (Negative); Blood Urine 2+ (Negative); Color Urine Red (Yellow); Glucose Urine UA Negative (Negative); Ketones Urine Negative (Negative); Leukocyte Esterase Ur 2+ LEU/UL (Negative); Nitrate Urine Positive (Negative); Protein Urine 1+ mg/dL (Negative); Specific Grav Ur > 1.045 (1.001-1.035); Urobilinogen Urine 0.2 mg/dL (<2.0)
[2024-01-08] MEDS: SACUBITRIL/VALSARTAN 49-51 MG TABLET 1 TABLET PO (21:22)
--- NOTE | 2024-01-08 22:14 | PC.NURSE ---
spoke with Sandra BARRY from [facility] transfer center, stated that there is no bed available at this time, gave a patient update, and current set of vital signs. Stated that if a bed does not become available tonight that they will most likely have a bed for the patient tomorrow
[2024-01-09] VITALS (18 sets, daily range): BP systolic 121–157; BP diastolic 73–98; PULSE 73–84; RESP 15–24; O2SAT 94–100
[2024-01-09 03:04] LABS: Hematocrit 36.3 % (42.0-52.0); Hemoglobin 11.7 g/dL (14.0-18.0)
== END 2024-01-09 04:08 | disposition short-term general hospital (02) ==
PROVIDERS: Emergency Medicine; Nurse Practitioner Family; Emergency Provider Emergency Medicine; PCP Internal Medicine
DX: K92.1 Melena (principal); K04.7 Periapical abscess without sinus; I48.91 Unspecified atrial fibrillation; I11.0 Hypertensive heart disease with heart failure; I50.20 Unspecified systolic (congestive) heart failure; I42.9 Cardiomyopathy, unspecified; I25.10 Atherosclerotic heart disease of native coronary artery without angina pectoris; G62.9 Polyneuropathy, unspecified; E66.9 Obesity, unspecified; Z68.44 Body mass index [BMI] 60.0-69.9, adult; Z79.01 Long term (current) use of anticoagulants; Z79.82 Long term (current) use of aspirin; Z79.899 Other long term (current) drug therapy
CPT/HCPCS: 36415; 74177; 80053; 81001; 83735; 85014; 85018; 85025; 85610; 85730; 86850; 86900; 86901; 87086; 96374; 99285; A9270; J2470; Q9967

== ENCOUNTER 2024-02-03 14:45 | Outpatient (RCR) | payer MEDICARE, SELFPAY ==
--- NOTE | 2023-11-11 17:23 | PTOPEVAL1 ---
Assessment and note entered by Maria Elena Lagos, PT Evaluation Information Assessment Status Evaluation Diagnosis Polyneuropathy, weakness Subjective Information Pt reports feeling weakness, unsteadiness, ongoing chronic problem; had to wait a minute to gain balance with immediate standing. States difficulty with putting pants on while standing due to c/o being unsteady on his feet, assists with him. Feeling wozzy, light headed at times, difficulty concentrating/brain fog, states he might be anemic and is taking Iron Supplements at this time . Reported Pain Level Pain Score 0: Self Report Assessment PT Clinical Summary Pt reports has been evaluated for PT under the same condition in September 2023. However, they have to cancel all appointments due to an emergency prostate surgery. Currently demos significant weakness, ROM deficits, balance and gait impairments; increased edema following surgery. Pt will greatly benefit from Lymphedema therapy as well as continuous Skilled PT to address deficits and reduce risk for falls. Plan of Care Interventions Electrical Stimulation,Gait Training,Hot Pack/Cold Pack,Intermittent Compression,Manual Therapy, Neuro Re-education,Patient/Caregiver Education, Therapeutic Activities,Therapeutic Exercise PT Services Indicated Yes Treatment Frequency and 2x/week x 12 visits Duration These treatments will address the objective and functional deficits as defined above. The patient will be advanced safely and appropriately in order for the patient to progress towards his/her prior level of function. Additional exercises will be introduced and as well as a comprehensive home exercise program upon discharge, if needed, ?to ensure carryover of functional gains achieved in the clinic. This treatment plan has been reviewed and agreement upon by the patient.
--- NOTE | 2023-12-30 17:22 | PTOPPROG ---
Assessment and note entered by Maria Elena Lagos, PT Re-eval Information Assessment Status Progress Diagnosis Polyneuropathy, weakness Subjective Information Pt reports feeling weakness, unsteadiness, ongoing chronic problem; had to wait a minute to gain balance with immediate standing. States difficulty with putting pants on while standing due to c/o being unsteady on his feet, assists with him. Feeling wozzy, light headed at times, difficulty concentrating/brain fog, states he might be anemic and is taking Iron Supplements at this time . Assessment PT Clinical Summary Pt showed good progress with therapy, has partially achieved his goals. Demos improved ROM, strength resulting to improved indep functional mobility. However, he continue to demo balance deficits and unsteadiness with using the QC. 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 Continued skilled PT is necessary to achieve his previously established and the new added goals. Plan of Care Interventions Gait Training,Hot Pack/Cold Pack,Manual Therapy, Neuro Re-education,Patient/Caregiver Educati, Therapeutic Activities,Therapeutic Exercise PT Services Indicated Yes Treatment Frequency and 2x/wk x 10 visits Duration These treatments will address the objective and functional deficits as defined above. The patient will be advanced safely and appropriately in order for the patient to progress towards his/her prior level of function. Additional exercises will be introduced and as well as a comprehensive home exercise program upon discharge, if needed, ?to ensure carryover of functional gains achieved in the clinic. This treatment plan has been reviewed and agreement upon by the patient.
--- NOTE | 2024-02-04 12:15 | PCPTNOTE ---
Pt. care documentation transitioning to [id number].
== END 2024-02-04 10:37 | disposition home or self-care (01) ==
LOC: ANHPT 14:45
PROVIDERS: PCP Internal Medicine; Visit Provider Internal Medicine
DX: G62.9 Polyneuropathy, unspecified (principal)
CPT/HCPCS: 97110; 97112; 97116; 97140; 97161; 97530; 97750

== ENCOUNTER 2024-02-25 13:15 | Outpatient (RCR) | payer MEDICARE, SELFPAY ==
--- NOTE | 2024-02-10 15:10 | PCPTNOTE ---
Pt arrived for therapy and requested his BP be taken because he is not feeling well. Pt's BP was 101/55, O2Sats were 100% and HR was 80. Pt stated he just didn't feel good and wanted to go back home.
--- NOTE | 2024-02-25 14:18 | PTOPDC ---
Assessment and note entered by [facility] Evaluation Information Assessment Status Discharge Diagnosis Polyneuropathy ICD-10 Condition Codes (PT) Weakness R53.1 Subjective Information Pt. reports that overall he has improved. He states that he is still using his walker, as he cannot feel his feet. He expresses a desire to use a cane with ambulation. He inquires regarding exercise frequency and most important exercise to keep up. Reported Pain Level Pain Score 0: Self Report Assessment PT Clinical Summary Pt. demonstrates improvements in gait mechanics and efficiency of gait. He is independent with transfers. Informed pt. that given his impaired sensation, the walker will be the safer mode for functional tasks. At this time pt. and his are performing an independent HEP and have been educated regarding activities to continue following D/C. Plan of Care PT Services Indicated No
== END 2024-03-11 13:45 | disposition home or self-care (01) ==
LOC: ANHPT 13:15
PROVIDERS: PCP Internal Medicine; Visit Provider Internal Medicine
DX: G62.9 Polyneuropathy, unspecified (principal)
CPT/HCPCS: 97110; 97116; 97530; 97750